=== PATIENT | female | born 1995 | race Caucasian/White ===

== ENCOUNTER 2017-11-07 11:09 | Inpatient (IN) ==
[2017-11-07] MEDS ORDERED: Sod Chloride 0.9% Inj 1,000 ML IV.CONT PRN (12:02)
[2017-11-07] MEDS ORDERED: Oxytocin 30 Units/500ml Premix 30 UNITS/500 ML BAG IV.SIG ONE (12:02)
[2017-11-07] MEDS ORDERED: fentaNYL Citrate Inj 100 MCG/2 ML Ampul IV.PUSH PRN ×2 (12:02)
[2017-11-07] MEDS ORDERED: Naloxone Inj 0.4 MG/ML Vial IV.PUSH PRN ×2 (12:02→21:23)
[2017-11-07] MEDS ORDERED: Sodium Chlor 0.9% Inj 500 ML IV.SIG PRN (12:02)
[2017-11-07] MEDS ORDERED: Penicillin G Potassium Inj 5,000,000 UNIT in Sodium Chloride 0.9% Inj 100 ML IV.SIG ONE (12:02)
[2017-11-07] MEDS ORDERED: Citric Acid/Sodium Citrate Liq 30 ML UDC PO SCH (12:15)
--- NOTE | 2017-11-07 12:15 | ED ---
History of Present Illness Primary Care Physician: No Primary Care Physician History of Present Illness: HPI: 22 year-old at 38 weeks presents with leakage of fluid that started this morning at 9 am. Denies any vaginal bleeding. Patient has felt movements. She has not felt any contractions today. care: Seen by Dr. Dickens. Patient has had an uncomplicated course. No UTIs. Patient is compliant. Denies a diagnosis of Gestational diabetes and preeclampsia. labs: GBS POSITIVE. Rubella immune, HepBsAg nonreactive, HIV negative, Abnormal Pap, GC chlamydia negative, g LOSS PREVENTION LEAD Hx: History of abnormal Pap PMH: None FHx: Denies any defects, CF, twins, DM Allergies: NKDA Meds: vitamins. Social history: No tobacco, alcohol or drug abuse. - Inpatient Certification I certify that the inpatient services were ordered in accordance with Medicare regulations governing the order. This includes certification that hospital inpatient services are reasonable and necessary and in the case of services not specified as inpatient-only under 42 CFR 419.22(n), that they are appropriately provided as inpatient services in accordance to with the 2-midnight benchmark under 43 CFR 412.3(e) Estimated Total Length of Stay (Days): 3 Plans for Post Hospital Care: Home [facility] - Travel History Recent Travel in the [place] Within the Last 8 Weeks: No Recent Travel Out of the Country Within the Last 8 Weeks: No Medications and Allergies Allergies Allergy/AdvReac Type Severity Reaction Status Date / Time No Known Allergies Allergy Verified 11/07/17 11:43 Home Medications Medication Instructions Recorded Confirmed Type amoxicillin 500 mg PO TID 11/07/17 11/07/17 History Active Medications: Active Medications Citric Acid/Sodium Citrate (Sodium Citrate/Citric Acid Liq) 30 ml PO ASTRONOMY DEPARTMENT CHAIR [facility] Stop: 11/11/17 12:14 Fentanyl Citrate (Fentanyl Inj) 50 mcg IV.PUSH Q1H PRN PRN Reason: Pain Scale 3 - 5 Fentanyl Citrate (Fentanyl Inj) 100 mcg IV.PUSH Q1H PRN PRN Reason: PAIN SCALE 6 TO 10 Lactated Ringer's (Lr 1000 Ml Inj) 1,000 mls @ 125 mls/hr IV.CONT .Q8H [facility] Lactated Ringer's (Lr 1000 Ml Inj) 1,000 mls @ 3,000 mls/hr IV.SIG UNSCH PRN PRN Reason: compromise or epidural Sodium Chloride (Ns Inj) 500 mls @ 1,000 mls/hr IV.SIG UNSCH PRN PRN Reason: SEE LABEL COMMENTS Sodium Chloride (Ns Inj) 1,000 mls @ 100 mls/hr IV.CONT .Q10H PRN PRN Reason: SEE LABEL COMMENTS Oxytocin (Pitocin 30 Units/Ns 500 Ml Premix) 30 units in 500 mls @ 999 mls/hr IV.SIG BOLUS ONE Stop: 11/07/17 12:32 Penicillin G Potassium 5,000, (000 unit/ Sodium Chloride) 100 mls @ 200 mls/hr IV.SIG ONCE ONE Stop: 11/07/17 12:31 Penicillin G Potassium 2,500, (000 unit/ Sodium Chloride) 100 mls @ 200 mls/hr IV.SIG Q4H [facility] Lidocaine HCl (Xylocaine 1% Inj) 0.1 ml I-DERMAL PRN PRN PRN Reason: For IV start Stop: 11/10/17 12:01 Lidocaine HCl (Xylocaine 1% Inj) 10 ml INFILTRATN PRN PRN PRN Reason: For episiotomy repair Stop: 11/09/17 12:01 Mineral Oil (Muri-Lube Oil) 10 ml TOPICAL PRN PRN PRN Reason: PRN perineal massage Naloxone HCl (Narcan Inj) 0.1 mg IV.PUSH Q2M PRN PRN Reason: for opiate reversal Exam Vital signs: Vital Signs 11/07/17 11:45 11/07/17 11:56 Temperature 99.6 F Pulse Rate 82 Respiratory Rate 18 Blood Pressure 134/98 H Intake & Output 11/06/17 11/07/17 11/07/17 18:59 06:59 18:59 Weight 75 kg Narrative: GENERAL: Well-nourished, well-developed patient. SKIN: Warm and dry. HEAD: Normocephalic and atraumatic. EYES: No scleral icterus. No injection or drainage. ENT: No nasal drainage noted. Mucous membranes pink. Airway patent. NECK: Supple, trachea midline. No JVD. CARDIOVASCULAR: Regular rate and rhythm without murmurs, gallops, or rubs. RESPIRATORY: Breath sounds equal bilaterally. No accessory muscle use. ABDOMEN/GI: Abdomen soft, non-tender, bowel sounds present, no rebound, no guarding Gravid to 38 weeks size GENITOURINARY: External Genitalia: intact and normal in appearance Cervix: anterior Dilatation: 3 cm Effacement: 60 Station: -1 Presentation: cephalic Membranes: ruptured Uterine Contractions: FHT's: Category: 1 Baseline: 135 bmp Reactive: yes Variability: moderate Decels: no EXTREMITIES: No cyanosis or edema. NEUROLOGICAL: Awake and alert. Normal speech. Assessment and Plan - Plan 22 Y F presents to the ED with complaints of leakage of fluid that started this morning. Denies any contractions or vaginal bleeding. Confrims Movement. -Amnisure Positive: +SROM -EFM/[place]: Category 1 -GBS Positive: Start on PCN -Cervical Check: /-1 -Admit to L&D -Discussed with - Attending Attestation I evaluated and examined the pt prior he admit Discharge Plan - Physicians Team Primary Care Provider: Primary Care Lala,Chyna Attending Provider: Martell Brady
[2017-11-07 13:32] LABS: Baso % (Auto) 0.4 % (0.0-2.0); Eos % (Auto) 0.3 % (0.0-4.0); Hemoglobin 9.4 gm/dL (11.6-15.3); Lymph # (Auto) 1.4 th/mm3 (1.0-4.8); Lymph % (Auto) 17.9 % (9.0-44.0); Mean Corpuscular HGB Conc 33.8 % (32.0-36.0); Mean Corpuscular Hemoglobin 29.5 pg (27.0-34.0); Mean Corpuscular Volume 87.4 fL (80.0-100.0); Mean Platelet Volume 10.6 fL (7.0-11.0); Mono # (Auto) 0.4 th/mm3 (0.0-0.9); Mono % (Auto) 5.1 % (0.0-8.0); Neut % (Auto) 76.3 % (16.0-70.0); Platelet Count 170 th/mm3 (150-450); Red Cell Distribution Width 14.5 % (11.6-17.2); White Blood Count 7.8 th/mm3 (4.0-11.0)
[2017-11-07 14:00] LABS: Alanine Aminotransferase 13 U/L (10-53); Albumin 2.6 g/dL (3.4-5.0); Anion Gap 11 meq/L (5-15); Aspartate Aminotransferase 11 U/L (15-37); Blood Urea Nitrogen 7 mg/dL (7-18); Calcium 8.3 mg/dL (8.5-10.1); Carbon Dioxide 19.7 meq/L (21.0-32.0); Chloride 107 meq/L (98-107); Glomerular Filtration Rate Greater Than 89 mL/min (>89); Glucose,Random 68 mg/dL (74-106); Potassium 3.9 meq/L (3.5-5.1); Sodium 138 meq/L (136-145)
[2017-11-07 14:03] LABS: Alkaline Phosphatase 158 U/L (45-117); Total Protein 6.5 g/dL (6.4-8.2)
[2017-11-07 14:51] LABS: Bilirubin,Urine Negative (Negative); Clarity,Urine Cloudy (Clear); Color,Urine Yellow (Yellw/Straw); Glucose,Urine (UA) Negative (Negative); Leukocyte Esterase,Urine Trace (Negative); Mucus,Urine Few /lpf (Occasional); Nitrite,Urine Negative (Negative); Squamous Epithelial Cell,Urine 4 /hpf (0-5)
[2017-11-07] MEDS ORDERED: Oxytocin 30 Units/500ml Premix 30 UNITS/500 ML BAG IV.SIG PRN (14:51)
[2017-11-07 14:57] LABS: Amphetamine Urine With Conf Neg (Neg); Benzodiazepine Urine With Conf Neg (Neg)
[2017-11-07] MEDS ORDERED: Measles/Mumps/Rubella Vaccine Inj 0.5 ML Vial SQ ONE (16:00)
[2017-11-07] MEDS ORDERED: Diphtheria/Tetanus/Pertussis Vaccine Inj 0.5 ML Syringe IM ONE (16:00)
[2017-11-07] MEDS ORDERED: Penicillin G Potassium Inj 2,500,000 UNIT in Sodium Chlor 0.9% Inj 100 ML IV.SIG SCH (16:04)
[2017-11-07] MEDS ORDERED: fentaNYL 2MCG-Bupiv 0.125% Epi 150 ML EPIDURAL ONE (19:08)
[2017-11-07] MEDS ORDERED: Lidocaine PF 1% Inj 5 ML Vial ONE (19:21)
[2017-11-07] MEDS ORDERED: Lidocaaine 1.5%/Epinephrine 1:200,000 PF Inj 5 ML Amp ONE (19:21)
[2017-11-07] MEDS ORDERED: Lidocaine 1% Inj 50 ML Vial ONE (20:47)
[2017-11-07] MEDS ORDERED: Zolpidem Tartrate 5 MG Tablet PO PRN (21:23)
[2017-11-07] MEDS ORDERED: Oxytocin 30 Units/500ml Premix 30 UNITS/500 ML BAG IV.CONT PRN (21:23)
[2017-11-07] MEDS ORDERED: Bisacodyl 10 MG Supp RECTAL PRN (21:23)
[2017-11-07] MEDS ORDERED: Witch Hazel 50%/Glyderin 12.5% 40 Pad Jar RECTAL PRN (21:23)
[2017-11-07] MEDS ORDERED: Benzocaine 20% Top Spray 60 ML Can TOPICAL PRN (21:23)
--- NOTE | 2017-11-07 21:23 | P.OBDELI ---
Weeks Gestation: 38 Patient Started Active Labor: Yes Medical Induction of Labor: No Artificial Rupture of Membrane: No Anesthesia: Epidural Episiotomy: none Vaginal Delivery: Normal Presentation: Occiput anterior Nuchal Cord: None Delayed Cord Clamping (45 sec): Yes Placenta: Spontaneous delivery Laceration: None (b/l labial tears) Repair: Chromic interrupted Estimated blood loss (mL): 100 : Female Additional Information: 9/9 Delivered by: Dr. Eddy Supervised by: Dr. Galarza
[2017-11-07] MEDS ORDERED: fentaNYL 2MCG-Bupiv 0.125% Epi 150 ML EPIDURAL PRN (21:28)
[2017-11-07] MEDS ORDERED: fentaNYL Citrate Inj 100 MCG/2 ML Ampul EPIDURAL ONE (21:28)
[2017-11-07] MEDS ORDERED: fentaNYL 2MCG-Bupiv 0.125% Epi 150 ML EPIDURAL SCH (21:45)
[2017-11-07] MEDS: Acetaminophen 325 MG Tablet PO PRN (23:20)
--- NOTE | 2017-11-08 07:45 | P.HPOB ---
History of Present Illness Primary Care Physician: No Primary Care Physician History of Present Illness: HPI: 22 year-old at 38 weeks presents with leakage of fluid that started this morning at 9 am. Denies any vaginal bleeding. Patient has felt movements. She has not felt any contractions today. care: Seen by Dr. Dickens. Patient has had an uncomplicated course. No UTIs. Patient is compliant. Denies a diagnosis of Gestational diabetes and preeclampsia. labs: GBS POSITIVE. Rubella immune, HepBsAg nonreactive, HIV negative, Abnormal Pap, GC chlamydia negative, g NATIONAL ACCOUNT REPRESENTATIVE Hx: History of abnormal Pap PMH: None FHx: Denies any defects, CF, twins, DM Allergies: NKDA Meds: vitamins. Social history: No tobacco, alcohol or drug abuse. - Inpatient Certification I certify that the inpatient services were ordered in accordance with Medicare regulations governing the order. This includes certification that hospital inpatient services are reasonable and necessary and in the case of services not specified as inpatient-only under 42 CFR 419.22(n), that they are appropriately provided as inpatient services in accordance to with the 2-midnight benchmark under 43 CFR 412.3(e) Estimated Total Length of Stay (Days): 3 Plans for Post Hospital Care: Home [facility] - Travel History Recent Travel in the [place] Within the Last 8 Weeks: No Recent Travel Out of the Country Within the Last 8 Weeks: No Medications and Allergies Allergies Allergy/AdvReac Type Severity Reaction Status Date / Time No Known Allergies Allergy Verified 11/07/17 11:43 Home Medications Medication Instructions Recorded Confirmed Type amoxicillin 500 mg PO TID 11/07/17 11/07/17 History Active Medications: Active Medications Citric Acid/Sodium Citrate (Sodium Citrate/Citric Acid Liq) 30 ml PO STRATEGIC PLANNING SPECIALIST [facility] Stop: 11/11/17 12:14 Fentanyl Citrate (Fentanyl Inj) 50 mcg IV.PUSH Q1H PRN PRN Reason: Pain Scale 3 - 5 Fentanyl Citrate (Fentanyl Inj) 100 mcg IV.PUSH Q1H PRN PRN Reason: PAIN SCALE 6 TO 10 Lactated Ringer's (Lr 1000 Ml Inj) 1,000 mls @ 125 mls/hr IV.CONT .Q8H [facility] Lactated Ringer's (Lr 1000 Ml Inj) 1,000 mls @ 3,000 mls/hr IV.SIG UNSCH PRN PRN Reason: compromise or epidural Sodium Chloride (Ns Inj) 500 mls @ 1,000 mls/hr IV.SIG UNSCH PRN PRN Reason: SEE LABEL COMMENTS Sodium Chloride (Ns Inj) 1,000 mls @ 100 mls/hr IV.CONT .Q10H PRN PRN Reason: SEE LABEL COMMENTS Oxytocin (Pitocin 30 Units/Ns 500 Ml Premix) 30 units in 500 mls @ 999 mls/hr IV.SIG BOLUS ONE Stop: 11/07/17 12:32 Penicillin G Potassium 5,000, (000 unit/ Sodium Chloride) 100 mls @ 200 mls/hr IV.SIG ONCE ONE Stop: 11/07/17 12:31 Penicillin G Potassium 2,500, (000 unit/ Sodium Chloride) 100 mls @ 200 mls/hr IV.SIG Q4H [facility] Lidocaine HCl (Xylocaine 1% Inj) 0.1 ml I-DERMAL PRN PRN PRN Reason: For IV start Stop: 11/10/17 12:01 Lidocaine HCl (Xylocaine 1% Inj) 10 ml INFILTRATN PRN PRN PRN Reason: For episiotomy repair Stop: 11/09/17 12:01 Mineral Oil (Muri-Lube Oil) 10 ml TOPICAL PRN PRN PRN Reason: PRN perineal massage Naloxone HCl (Narcan Inj) 0.1 mg IV.PUSH Q2M PRN PRN Reason: for opiate reversal Exam Vital signs: Vital Signs 11/07/17 11:45 11/07/17 11:56 Temperature 99.6 F Pulse Rate 82 Respiratory Rate 18 Blood Pressure 134/98 H Intake & Output 11/06/17 11/07/17 11/07/17 18:59 06:59 18:59 Weight 75 kg Narrative: GENERAL: Well-nourished, well-developed patient. SKIN: Warm and dry. HEAD: Normocephalic and atraumatic. EYES: No scleral icterus. No injection or drainage. ENT: No nasal drainage noted. Mucous membranes pink. Airway patent. NECK: Supple, trachea midline. No JVD. CARDIOVASCULAR: Regular rate and rhythm without murmurs, gallops, or rubs. RESPIRATORY: Breath sounds equal bilaterally. No accessory muscle use. ABDOMEN/GI: Abdomen soft, non-tender, bowel sounds present, no rebound, no guarding Gravid to 38 weeks size GENITOURINARY: External Genitalia: intact and normal in appearance Cervix: anterior Dilatation: 3 cm Effacement: 60 Station: -1 Presentation: cephalic Membranes: ruptured Uterine Contractions: FHT's: Category: 1 Baseline: 135 bmp Reactive: yes Variability: moderate Decels: no EXTREMITIES: No cyanosis or edema. NEUROLOGICAL: Awake and alert. Normal speech. Assessment and Plan - Plan 22 Y F presents to the ED with complaints of leakage of fluid that started this morning. Denies any contractions or vaginal bleeding. Confrims Movement. -Amnisure Positive: +SROM -EFM/[place]: Category 1 -GBS Positive: Start on PCN -Cervical Check: /-1 -Admit to L&D -Discussed with
[2017-11-08] MEDS: Acetaminophen 325 MG Tablet PO PRN ×3 (08:06→20:43)
--- NOTE | 2017-11-08 09:34 | P.PNOB ---
Subjective Post day: 1 Interval history: Patient is a 22 year-old delivered at 38 weeks. Patient is day 1 after . AFVSS. Patient's pain is well-controlled. Patient reports eating and drinking without any nausea or vomiting. Patient reports minimal bleeding. Patient has passed gas but no bowel movements. Patient is walking without lower extremity pain or shortness of breath. Patient reports desire for contraception and breast-feeding. Objective Vital Signs/I&O: Vital Signs 11/07/17 11:45 11/07/17 11:56 11/07/17 12:20 Temperature 99.6 F 99.2 F Pulse Rate 82 Respiratory Rate 18 Blood Pressure 134/98 H 11/07/17 12:21 11/07/17 13:34 11/07/17 14:25 Temperature Pulse Rate 71 78 Respiratory Rate 18 Blood Pressure 126/99 H 130/100 H 11/07/17 14:26 11/07/17 15:13 11/07/17 15:30 Temperature Pulse Rate 80 68 72 Respiratory Rate 18 Blood Pressure 139/100 H 134/84 131/93 H 11/07/17 16:06 11/07/17 16:30 11/07/17 17:00 Temperature 98.0 F Pulse Rate 71 67 76 Respiratory Rate 18 Blood Pressure 130/98 H 122/87 133/93 H 11/07/17 17:20 11/07/17 18:00 11/07/17 18:11 Temperature Pulse Rate 98 H Respiratory Rate 18 18 Blood Pressure 151/98 H 11/07/17 18:15 11/07/17 18:52 11/07/17 19:00 Temperature 97.9 F Pulse Rate 105 H 74 Respiratory Rate 18 Blood Pressure 151/93 H 152/59 H 11/07/17 19:30 11/07/17 19:45 11/07/17 19:48 Temperature Pulse Rate 116 H Respiratory Rate 20 Blood Pressure 164/101 H 11/07/17 20:03 11/07/17 20:05 11/07/17 20:30 Temperature Pulse Rate 87 84 Respiratory Rate Blood Pressure 102/68 118/80 11/07/17 20:39 11/07/17 20:45 11/07/17 21:00 Temperature Pulse Rate 108 H Respiratory Rate 18 20 Blood Pressure 132/93 H 11/07/17 21:01 11/07/17 21:30 11/07/17 21:40 Temperature 98.7 F Pulse Rate 103 H 110 H Respiratory Rate 18 Blood Pressure 138/92 H 122/72 11/07/17 21:45 11/07/17 21:55 11/07/17 22:14 Temperature Pulse Rate 85 Respiratory Rate 18 Blood Pressure 130/94 H 140/92 H 11/07/17 22:32 11/07/17 22:51 11/08/17 08:00 Temperature 98.5 F 97.3 F L Pulse Rate 81 74 70 Respiratory Rate 24 Blood Pressure 127/79 139/82 121/81 Intake & Output 11/07/17 11/08/17 11/08/17 18:59 06:59 18:59 Weight 75 kg Result Diagrams: 11/07/17 12:50 11/07/17 12:50 Objective Remarks: GENERAL: Well-nourished, well-developed patient. CARDIOVASCULAR: Regular rate and rhythm without murmurs, gallops, or rubs. RESPIRATORY: Breath sounds equal bilaterally. No accessory muscle use. ABDOMEN/GI: Abdomen soft, non-tender. Fundus: Firm, non-tender at umbilicus. GENITOURINARY: Light to moderate bleeding. EXTREMITIES: No cyanosis or edema, non-tender, without signs of DVT. Medications and IVs: Active Medications Acetaminophen (Tylenol) 650 mg PO Q4H PRN PRN Reason: PAIN SCALE 1 TO 2 Last Admin: 11/08/17 08:06 Dose: 650 mg Al Hydroxide/Mg Hydroxide (Milk Of Magnesia Liq) 30 ml PO Q12H PRN PRN Reason: Mild Constipation Benzocaine (Americaine 20% [place]) 1 spray TOPICAL Q4H PRN PRN Reason: For Perineum Discomfort Last Admin: 11/07/17 23:13 Dose: 1 spray Bisacodyl (Dulcolax Supp) 10 mg RECTAL DAILY PRN PRN Reason: SEVERE CONSITIPATION Oxytocin (Pitocin 30 Units/Ns 500 Ml Premix) 30 units in 500 mls @ 100 mls/hr IV.CONT UNSCH PRN PRN Reason: Heavy bleeding Ibuprofen (Motrin) 800 mg PO Q8H PRN PRN Reason: For Cramping Last Admin: 11/08/17 08:04 Dose: 800 mg Lactulose (Lactulose Liq) 30 ml PO DAILY PRN PRN Reason: SEVERE CONSITIPATION Naloxone HCl (Narcan Inj) 0.1 mg IV.PUSH Q2M PRN PRN Reason: for opiate reversal Ondansetron HCl (Zofran Odt) 4 mg PO Q6H PRN PRN Reason: NAUSEA OR VOMITING Senna/Docusate Sodium (Maria Luisa-Colace) 1 tab PO BID [facility] Sennosides (Senokot) 17.2 mg PO Q12H PRN PRN Reason: Moderate Constipation Sodium Chloride (Ns Flush) 2 ml IV.FLUSH BID [facility] Sodium Chloride (Ns Flush) 2 ml IV.FLUSH PRN PRN PRN Reason: FLUSH AFTER USING IV ACCESS Witch Ama/Glycerin (Tucks Pads) 1 applicatio RECTAL QID PRN PRN Reason: HEMORRHOIDS Last Admin: 11/07/17 23:13 Dose: 1 applicatio Zolpidem Tartrate (Ambien) 5 mg PO HS PRN PRN Reason: SLEEP Assessment and Plan - Plan Patient is a 22 year-old delivered at 38 weeks. Patient is day 1 after . Continue routine care. Motrin and Percocet when necessary for pain. Encourage OOB Pelvic rest for 6 weeks will need follow-up appointment at that time. appropriately. Anticipate discharge tomorrow Discussed with Dr.G Wilson
[2017-11-08] MEDS: Senna/Docusate Sodium 8.6/50 MG Tablet PO SCH ×2 (12:46→20:44)
[2017-11-09] MEDS: Acetaminophen 325 MG Tablet PO PRN ×3 (04:32→17:53)
--- NOTE | 2017-11-09 08:53 | P.PNOB ---
Subjective Interval history: Patient is a 22 year-old delivered at 38 weeks. Patient is day 2 after . AFVSS. Patient's pain is well-controlled. Patient reports eating and drinking without any nausea or vomiting. Patient reports minimal bleeding. Patient has passed gas and had a bowel movement. Patient is walking without lower extremity pain or shortness of breath. Patient reports desire for contraception and will discuss with her OB provider. She is breast-feeding appropriately. Objective Vital Signs/I&O: Vital Signs 11/08/17 14:52 11/08/17 20:00 11/09/17 08:00 Temperature 98.5 F 97.6 F 97.7 F Pulse Rate 74 85 16 L Respiratory Rate 28 H 20 9 L Blood Pressure 135/85 121/76 120/65 Intake & Output 11/08/17 11/09/17 11/09/17 18:59 06:59 18:59 Intake Total 1000 / 1000 Balance 1000 / 1000 Intake: IV 1000 / 1000 Result Diagrams: 11/07/17 12:50 11/07/17 12:50 Objective Remarks: GENERAL: Well-nourished, well-developed patient. CARDIOVASCULAR: Regular rate and rhythm without murmurs, gallops, or rubs. RESPIRATORY: Breath sounds equal bilaterally. No accessory muscle use. ABDOMEN/GI: Abdomen soft, non-tender. Fundus: Firm, non-tender at umbilicus. GENITOURINARY: Light to moderate bleeding. EXTREMITIES: No cyanosis or edema, non-tender, without signs of DVT. Medications and IVs: Active Medications Acetaminophen (Tylenol) 650 mg PO Q4H PRN PRN Reason: PAIN SCALE 1 TO 2 Last Admin: 11/09/17 04:32 Dose: 650 mg Al Hydroxide/Mg Hydroxide (Milk Of Magnesia Liq) 30 ml PO Q12H PRN PRN Reason: Mild Constipation Benzocaine (Americaine 20% Top [place]) 1 spray TOPICAL Q4H PRN PRN Reason: For Perineum Discomfort Last Admin: 11/07/17 23:13 Dose: 1 spray Bisacodyl (Dulcolax Supp) 10 mg RECTAL DAILY PRN PRN Reason: SEVERE CONSITIPATION Oxytocin (Pitocin 30 Units/Ns 500 Ml Premix) 30 units in 500 mls @ 100 mls/hr IV.CONT UNSCH PRN PRN Reason: Heavy bleeding Ibuprofen (Motrin) 800 mg PO Q8H PRN PRN Reason: For Cramping Last Admin: 11/09/17 04:33 Dose: 800 mg Lactulose (Lactulose Liq) 30 ml PO DAILY PRN PRN Reason: SEVERE CONSITIPATION Naloxone HCl (Narcan Inj) 0.1 mg IV.PUSH Q2M PRN PRN Reason: for opiate reversal Ondansetron HCl (Zofran Odt) 4 mg PO Q6H PRN PRN Reason: NAUSEA OR VOMITING Senna/Docusate Sodium (Maria Luisa-Colace) 1 tab PO BID [facility] Last Admin: 11/08/17 20:44 Dose: 1 tab Sennosides (Senokot) 17.2 mg PO Q12H PRN PRN Reason: Moderate Constipation Sodium Chloride (Ns Flush) 2 ml IV.FLUSH BID [facility] Last Admin: 11/09/17 04:40 Dose: 2 ml Sodium Chloride (Ns Flush) 2 ml IV.FLUSH PRN PRN PRN Reason: FLUSH AFTER USING IV ACCESS Witch Ama/Glycerin (Tucks Pads) 1 applicatio RECTAL QID PRN PRN Reason: HEMORRHOIDS Last Admin: 11/07/17 23:13 Dose: 1 applicatio Zolpidem Tartrate (Ambien) 5 mg PO HS PRN PRN Reason: SLEEP Assessment and Plan - Plan Patient is a 22 year-old delivered at 38 weeks. Patient is day 2 after . Continue routine care. Motrin and Percocet when necessary for pain. Encourage OOB Pelvic rest for 6 weeks will need follow-up appointment at that time. appropriately. Anticipate discharge today Discussed with Dr. Moon .
[2017-11-09] MEDS: Senna/Docusate Sodium 8.6/50 MG Tablet PO SCH (09:53)
== END 2017-11-09 18:01 | disposition home or self-care (01) ==
LOC: HOBED 11:09 → H2E 12:00 → H1EA 22:55
PROVIDERS: ADMIT Obstetrics & Gynecology; ATTEND Obstetrics & Gynecology